=== PATIENT | female | born 2000 | race African-American/Black ===

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

== ENCOUNTER 2019-11-18 12:47 | Emergency (ER) | payer OTHER ==
--- OUTSIDE RECORDS SUMMARY | 2019-11-18 12:58 | XMS ---
:2000 Author Organization [facility] Support Name Relationship Address Phone UE, UNEMPLOYED Unavailable Unavailable Unavailable UE Unavailable Unavailable Unavailable [employer] Unavailable [address] [place] [address] WM Unavailable Unavailable Unavailable FAY BARNES GRANDFATHER [address] [place] [address] TRUPTI BARNES GRANDMOTHER [address] [phone] [address] [place] [address] Re-disclosure Warning The records that you are about to access may contain information from federally- assisted alcohol or drug abuse programs. If such information is present, then the following federally mandated warning applies: This information has been disclosed to you from records protected by federal confidentiality rules (42 CFR part 2). The federal rules prohibit you from making any further disclosure of this information unless further disclosure is expressly permitted by the written consent of the person to whom it pertains or as otherwise permitted by 42 CFR part 2. A general authorization for the release of medical or other information is NOT sufficient for this purpose. The Federal rules restrict any use of the information to criminally investigate or prosecute any alcohol or drug abuse patient.The records that you are about to access may contain highly sensitive health information, the redisclosure of which is protected by Article 27-F of the [facility] Public Health law. If you continue you may haveaccess to information: Regarding HIV / AIDS; Provided by facilities licensed or operated by the [facility] Office of Mental Health; or Provided by the [facility] Office for People With Developmental Disabilities. If such information is present, then the following [facility] mandated warning applies: This information has been disclosed to you from confidential records which are protected by state law. State law prohibits you from making any further disclosure of this information without the specific written consent of the person to whom it pertains, or as otherwise permitted by law. Any unauthorized further disclosure in violation of state law may result in a fine or long-term sentence or both. A general authorization for the release of medical or other information is NOT sufficient authorization for further disclosure. Insurance Providers Payer name Policy type Policy ID Covered Covered alliance party's Policy P baltazar / Coverage alliance party ID relationship to [place] Inf ormation type [place] MVP [place]ICA[place] [id number] SP [id number] O [facility] [id number] SP [id number] CARE SELF PAY SP INSURANCE Results ID Date Data Source [id number] 08/11/2019 11:00:00 AM EDT [facility] Name Value Range Interpretation Code Description Data Vi rce(s) Supporting Document(s ) SARS [facility] Coronaviru s-2 RNA, V This lab was ordered by [facility] and reported by [facility]. ID Date Data Source [id number] 08/04/2019 11:00:00 AM EDT [facility] Name Value Range Interpretation Code Description Data Vi rce(s) Supporting Document(s ) SARS-CoV-2 [facility] RNA Resp Ql LUCITA+probe This lab was ordered by [facility] and reported by [facility]. ID Date Data Source [id number] 07/28/2019 11:00:00 AM EDT [facility] Name Value Range Interpretation Code Description Data Vi rce(s) Supporting Document(s ) SARS-CoV-2 [facility] RNA Resp Ql LUCITA+probe This lab was ordered by [facility] and reported by [facility]. ID Date Data Source [id number] 07/22/2019 05:00:00 PM EDT [facility] Name Value Range Interpretation Code Description Data Vi rce(s) Supporting Document(s ) SARS-CoV-2 [facility] RNA Resp Ql LUCITA+probe This lab was ordered by [facility] and reported by [facility]. ID Date Data Source [id number] 07/16/2019 05:00:00 PM EDT [facility] Name Value Range Interpretation Code Description Data Vi rce(s) Supporting Document(s ) SARS-CoV-2 [facility] RNA Resp Ql LUCITA+probe This lab was ordered by [facility] and reported by [facility]. ID Date Data Source [id number] 07/10/2019 05:00:00 PM EDT [facility] Name Value Range Interpretation Code Description Data Vi rce(s) Supporting Document(s ) SARS-CoV-2 [facility] RNA Resp Ql LUCITA+probe This lab was ordered by [facility] and reported by [facility]. ID Date Data Source [id number] 06/20/2019 11:00:00 AM EDT [facility] Name Value Range Interpretation Code Description Data Vi rce(s) Supporting Document(s ) SARS-CoV-2 [facility] RNA Resp Ql LUCITA+probe This lab was ordered by [facility] and reported by [facility]. Procedure
--- NOTE | 2019-11-18 13:21 | TELE ---
HPI Do you have fever,cough or shortness of breath?: No - General Reason For Visit: VIRTUAL VISIT History Source: Patient Exam Limitations: No Limitations Past History - Travel History Traveled outside of the country in the last 30 days: No Close contact w/someone who was outside of country & ill: No - Medical History Allergies/Adverse Reactions: Allergies Allergy/AdvReac Type Severity Reaction Status Date / Time No Known Allergies Allergy Verified 07/07/18 22:45 Home Medications: Ambulatory Orders No Home Medications 0 dose .ROUTE UTDICT 08/20/12 Naproxen [Naprosyn -] 375 mg PO Q12H #30 tablet 07/08/18 Cephalexin Monohydrate [Keflex -] 500 mg PO BID #14 capsule 11/18/19 COPD: No - Immunization History Immunization Up to Date: Yes - Psycho-Social/Smoking History Smoking Status: No Smoking History: Unknown if ever smoked Have you smoked in the past 12 months: No Number of Cigarettes Smoked Daily: 0 Review of Systems - Review of Systems Able to Perform ROS?: Yes Comments:: 11/18/19 13:08 CONSTITUTIONAL: Absent: fever, chills, diaphoresis, generalized weakness, malaise, loss of appetite HEENT: Absent: rhinorrhea, nasal congestion, throat pain, throat swelling, difficulty swallowing, mouth swelling, ear pain, eye pain, visual Changes CARDIOVASCULAR: Absent: chest pain, loss of consciousness, palpitations, irregular heart rate, peripheral edema RESPIRATORY: Absent: cough, shortness of breath, dyspnea with exertion, orthopnea, wheezing, stridor, hemoptysis GASTROINTESTINAL: Absent: abdominal pain, abdominal distension, nausea, vomiting, diarrhea, constipation, melena, hematochezia : Present: dysuria, frequency, urgency. Absent: genital pain, hematuria, hesitancy SKIN: Absent: rash, itching, pallor NEUROLOGIC: Absent: headache, focal weakness or paresthesias, dizziness, unsteady gait, seizure, mental status changes, bladder or bowel incontinence PSYCHIATRIC: Absent: anxiety, depression, suicidal or homicidal ideation, hallucinations. Limited Georgian proficient: No *Physical Exam - Physical Exam 11/18/19 13:09 GENERAL: Well developed, well nourished. Awake and alert. No acute distress. HEENT: Normocephalic, atraumatic. PERRLA, EOMI. NECK: Supple. Full ROM. PULMONARY: No evidence of respiratory distress. ABDOMEN: Suprapubic discomfort. Soft. Non-distended. EXTREMITIES: No cyanosis. SKIN: Warm and dry. Normal capillary refill. No rashes. No jaundice. NEUROLOGICAL: Alert, awake, appropriate. PSYCHIATRIC: Cooperative. Good eye contact. Appropriate mood and affect. - Medical Decision Making 11/18/19 13:10 The patient is a 19-year-old female no past medical history who presents to the [facility] urgent care today for dysuria. She states that she had labs done in this facility on 11/13/2020 and was wondering if she had a urinary tract infection. She endorses dysuria, frequency. She denies fevers, chills, COVID symptoms, nausea, vomiting and back pain. A/P: UTI On telehealth exam, TTP of the suprapubic area. No RLQ or LLQ pain on patients exam LMP 10/23/2019. Labs from visit on 11/14/2019 done as an outpatient and positive UTI with UC showing E. coli sensitive to Keflex. Patient has no allergies We will send Keflex to patient's pharmacy which is [facility] on [address]. Strict return precautions given for worsening fevers, chills, nausea, vomiting, back pain or if she has any changes in her symptoms to come to the ER for re- evaluation Pt understands all instructions and all questions were answered. Discharge Diagnosis at time of Disposition: UTI (urinary tract infection) Qualifiers: Urinary tract infection type: acute cystitis Hematuria presence: without hematuria Qualified Code(s): N30.00 - Acute cystitis without hematuria - Referrals Follow-up Referral(s): Bia Leroy [Primary Care Provider] - - Patient Instructions
== END 2019-11-18 13:24 | disposition home or self-care (01) ==
LOC: JVIRT 12:47
DX: N30.00 Acute cystitis without hematuria (principal)
CPT/HCPCS: Q3014-GT

== ENCOUNTER 2020-04-12 23:37 | Emergency (ER) | payer OTHER ==
[2020-04-12 23:56] VITALS: TEMP 98.3; BMI 35.9
[2020-04-13 02:55] LABS: BASO % 0.5 % (0-2.0); EOS % 0.2 % (0-4.5); HEMATOCRIT 28.1 % (32.4-45.2); HEMOGLOBIN 8.7 GM/dL (10.7-15.3); MCH 18.6 pg (25.7-33.7); MCHC 30.8 g/dl (32.0-36.0); MEAN CELL VOLUME 60.2 fl (80-96); MEAN PLT VOLUME 8.9 fl (7.5-11.1); MONO % 10.4 % (3.8-10.2); NEUT % 68.9 % (42.8-82.8); PLATELET COUNT 366 K/MM3 (134-434); RBC 4.67 M/mm3 (3.60-5.2); RDW 20.7 % (11.6-15.6); WHITE BLOOD COUNT 9.4 K/mm3 (4.0-10.0)
[2020-04-13 03:07] LABS: CHLORIDE 109 mmol/L (98-107); POTASSIUM 3.9 mmol/L (3.5-5.1); SODIUM 142 mmol/L (136-145)
[2020-04-13 03:09] LABS: CALCIUM 9.1 mg/dL (8.5-10.1)
[2020-04-13 03:10] LABS: ALBUMIN 3.8 g/dl (3.4-5.0); ANION GAP 8 MMOL/L (8-16); BLOOD UREA NITROGEN 9.4 mg/dL (7-18); CO2 25 mmol/L (21-32); GLUCOSE,RANDOM 101 mg/dL (74-106)
[2020-04-13 03:13] LABS: CREATININE 0.9 mg/dL (0.55-1.3); SGOT/AST 13 U/L (15-37); SGPT/ALT 17 U/L (13-61)
[2020-04-13 03:14] LABS: BILIRUBIN,TOTAL 0.4 mg/dL (0.2-1); TOT PROT 8.2 g/dl (6.4-8.2)
[2020-04-13 03:16] LABS: ALK PHOS 77 U/L (45-117)
[2020-04-13 03:58] VITALS: BP 139/86; PULSE 82
[2020-04-13 06:48] LABS: ANISOCYTOSIS 2+; MACROCYTOSIS 0; OVALOCYTE 1+; PLATELET ESTIMATE NORMAL; SICKELED CELLS 1+; TEAR DROP CELLS 1+
== END 2020-04-13 03:58 | disposition home or self-care (01) ==
LOC: JER 23:37
DX: R00.2 Palpitations (principal)
CPT/HCPCS: 36415; 71046-TC-FY; 80053; 84484; 84703; 85025; 85379; 93005; 93010; 99285-25

== ENCOUNTER 2021-01-12 17:01 | Emergency (ER) | payer OTHER ==
[2021-01-12 17:07] VITALS: BP 130/82; PULSE 99; TEMP 97.8; BMI 30.7
[2021-01-12] MEDS ORDERED: IBUPROFEN 600 MG TABLET (FP) PO ONE ×2 (17:41→17:57)
== END 2021-01-12 18:32 | disposition home or self-care (01) ==
LOC: JER 17:01
DX: M79.644 Pain in right finger(s) (principal)
CPT/HCPCS: 73130-TC-RT-FY; 99283-25

== ENCOUNTER 2021-08-19 16:52 | Emergency (ER) | payer OTHER ==
[2021-08-19 17:23] VITALS: BP 121/79; PULSE 93; TEMP 98.3; BMI 33.5
[2021-08-19] MEDS ORDERED: predniSONE 20 MG TABLET (UD) PO ONE (19:03)
[2021-08-19] MEDS ORDERED: FAMOTIDINE 10 MG TABLET PO ONE (19:03)
[2021-08-19] MEDS ORDERED: predniSONE 10 MG TABLET (UD) ONE (19:23)
[2021-08-19] MEDS ORDERED: FAMOTIDINE 20 MG TABLET ONE (19:24)
[2021-08-19] MEDS ORDERED: predniSONE 20 MG TABLET (UD) ONE (19:24)
== END 2021-08-19 19:35 | disposition home or self-care (01) ==
LOC: JERFT 16:52
DX: R21 Rash and other nonspecific skin eruption (principal)
CPT/HCPCS: 99283-25

== ENCOUNTER 2022-05-26 14:50 | Emergency (ER) | payer OTHER ==
[2022-05-26 14:57] VITALS: BP 142/78; PULSE 91; RESP 18; TEMP 98.2; BMI 38.4
[2022-05-26] MEDS ORDERED: KETOROLAC TROMETHAMINE 30 MG/1 ML VIAL IM ONE (16:50)
[2022-05-26] MEDS ORDERED: KETOROLAC TROMETHAMINE 30 MG/1 ML VIAL ONE (17:01)
== END 2022-05-26 18:04 | disposition home or self-care (01) ==
LOC: JERFT 14:50
DX: M25.511 Pain in right shoulder (principal); W10.9XXA Fall (on) (from) unspecified stairs and steps, initial encounter
CPT/HCPCS: 73030-TC-RT-FY; 99284-25

== ENCOUNTER 2022-09-22 13:36 | Emergency (ER) | payer OTHER ==
[2022-09-22 13:45] VITALS: BP 108/79; PULSE 82; RESP 16; TEMP 98.6; BMI 32.1
[2022-09-22] MEDS ORDERED: METOCLOPRAMIDE HCL INJECTION 10 MG/2 ML VIAL IVPUSH ONE (14:12)
[2022-09-22] MEDS ORDERED: LACTATED RINGERS SOLUTION 1,000 ML/1,000 ML INFUS.BAG IV SCH ×2 (14:15→16:45)
[2022-09-22 14:46] LABS: HCG,QUALITATIVE URINE Negative
[2022-09-22 14:47] LABS: EPI CELLS 17 /uL (0-25.1); HYALINE CASTS 1 /uL (0-3.1); URINE APPEARANCE CLEAR; URINE BACTERIA 1300 /uL (0-1359); URINE BILIRUBIN NEGATIVE (NEGATIVE); URINE COLOR DK YELLOW; URINE GLUCOSE (UA) NEGATIVE (NEGATIVE); URINE KETONE TRACE (NEGATIVE); URINE LEUK ESTERASE 1+ (NEGATIVE); URINE NITRITE NEGATIVE (NEGATIVE); URINE PROTEIN TRACE (NEGATIVE); URINE RBC 30 /uL (0-23.9); URINE WBC 123 /uL (0-25.8)
[2022-09-22] MEDS ORDERED: METOCLOPRAMIDE HCL INJECTION 10 MG/2 ML VIAL ONE (14:56)
[2022-09-22 16:04] LABS: BASO % 0.2 % (0-2.0); EOS % 0.5 % (0-4.5); HEMATOCRIT 35.9 % (32.4-45.2); HEMOGLOBIN 11.7 GM/dL (10.7-15.3); LYMPH % 24.9 % (8-40); MCH 24.8 pg (25.7-33.7); MCHC 32.7 g/dl (32.0-36.0); MEAN CELL VOLUME 75.8 fl (80-96); MONO % 12.2 % (3.8-10.2); NEUT % 62.2 % (42.8-82.8); PLATELET COUNT 296 10^3/uL (134-434); RBC 4.73 M/mm3 (3.60-5.2); WHITE BLOOD COUNT 7.4 K/mm3 (4.0-10.0)
[2022-09-22 16:29] LABS: POTASSIUM 4.2 mmol/L (3.5-5.1)
[2022-09-22 16:31] LABS: CALCIUM 9.1 mg/dL (8.5-10.1)
[2022-09-22 16:32] LABS: ALBUMIN 3.9 g/dl (3.4-5.0); BLOOD UREA NITROGEN 6.1 mg/dL (7-18); MAGNESIUM 2.3 mg/dL (1.8-2.4)
[2022-09-22 16:35] LABS: CREATININE 0.8 mg/dL (0.55-1.3)
[2022-09-22 16:36] LABS: BILIRUBIN,TOTAL 0.5 mg/dL (0.2-1); TOT PROT 7.9 g/dl (6.4-8.2)
[2022-09-22] MEDS ORDERED: THIAMINE HCL 200 MG/2 ML VIAL IVPB ONE (16:43)
[2022-09-22] MEDS ORDERED: CYANOCOBALAMIN (VITAMIN B-12) 1000 MCG/1 ML VIAL IM ONE (16:44)
[2022-09-22] MEDS ORDERED: THIAMINE HCL 200 MG/2 ML VIAL ONE (16:58)
== END 2022-09-22 18:09 | disposition home or self-care (01) ==
LOC: JER 13:36
PROC: 3E033GC Introduction of Other Therapeutic Substance into Peripheral Vein, Percutaneous Approach (ICD-10-PCS; principal; 2022-09-22)
PROC: 3E033GC Introduction of Other Therapeutic Substance into Peripheral Vein, Percutaneous Approach (ICD-10-PCS; 2022-09-22)
PROC: 3E023GC Introduction of Other Therapeutic Substance into Muscle, Percutaneous Approach (ICD-10-PCS; 2022-09-22)
DX: R42 Dizziness and giddiness (principal); R53.1 Weakness; R11.2 Nausea with vomiting, unspecified
CPT/HCPCS: 36415; 80053; 81003; 83690; 83735; 84703; 85025; 99284-25

== ENCOUNTER 2022-12-18 14:25 | Emergency (ER) | payer OTHER ==
[2022-12-18 15:15] VITALS: BP 132/79; PULSE 76; RESP 19; TEMP 99.1; BMI 34.0
[2022-12-18] MEDS ORDERED: SODIUM CHLORIDE 0.9% 500 ML INFUS.BAG IV ONE (17:39)
[2022-12-18] MEDS ORDERED: METOCLOPRAMIDE HCL INJECTION 10 MG/2 ML VIAL IVPUSH ONE (17:39)
[2022-12-18] MEDS ORDERED: KETOROLAC TROMETHAMINE 15 MG/ML VIAL IVPUSH ONE (17:39)
[2022-12-18] MEDS ORDERED: KETOROLAC TROMETHAMINE 15 MG/ML VIAL ONE (18:00)
[2022-12-18] MEDS ORDERED: METOCLOPRAMIDE HCL INJECTION 10 MG/2 ML VIAL ONE (18:00)
== END 2022-12-18 18:55 | disposition left against medical advice (07) ==
LOC: JER 14:25
DX: R51.9 Headache, unspecified (principal); Z53.21 Procedure and treatment not carried out due to patient leaving prior to being seen by health care provider; H53.71 Glare sensitivity; R11.0 Nausea
CPT/HCPCS: 99281-25

== ENCOUNTER 2024-07-12 04:18 | Emergency (ER) | payer OTHER ==
[2024-07-12 04:37] VITALS: PULSE 87; RESP 18; TEMP 98.1; BMI 32.5
[2024-07-12] MEDS ORDERED: PROCHLORPERAZINE INJECTION 10 MG/2 ML VIAL ONE (05:17)
[2024-07-12] MEDS: PROCHLORPERAZINE INJECTION 10 MG/2 ML VIAL IVPB ONE (05:23)
[2024-07-12] MEDS: SODIUM CHLORIDE 0.9% 500 ML INFUS.BAG IV ONE (05:23)
[2024-07-12] MEDS ORDERED: KETOROLAC TROMETHAMINE 15 MG/ML VIAL ONE (05:59)
[2024-07-12] MEDS: KETOROLAC TROMETHAMINE 15 MG/ML VIAL IVPUSH ONE (06:05)
[2024-07-12 07:01] VITALS: BP 106/55
== END 2024-07-12 07:53 | disposition home or self-care (01) ==
LOC: JER 04:18
PROC: 3E0333Z Introduction of Anti-inflammatory into Peripheral Vein, Percutaneous Approach (ICD-10-PCS; principal; 2024-07-12)
PROC: 3E033GC Introduction of Other Therapeutic Substance into Peripheral Vein, Percutaneous Approach (ICD-10-PCS; 2024-07-12)
DX: R51.9 Headache, unspecified (principal); R07.0 Pain in throat; H66.92 Otitis media, unspecified, left ear
CPT/HCPCS: 36415; 70450-TC; 84703; 99285-25